=== PATIENT | female | born 1990 | race Caucasian/White ===

== ENCOUNTER 2018-07-31 16:02 | Emergency (ER) | payer MEDICAID ==
[~2018-07-31] VITALS: Ht 160 cm; Wt 44.7 kg
[2018-07-31] MEDS ORDERED: haloperidol lactate 5mg/ml inj IM ONE (17:10)
[2018-07-31] MEDS ORDERED: metoclopramide 5 mg/ml inj IV ONE (17:10)
[2018-07-31] MEDS ORDERED: normal saline 1000ML IV soln IV ONE (17:10)
[2018-07-31] MEDS ORDERED: LORazepam 2 mg/ml vial IV ONE (17:10)
[2018-07-31 17:29] LABS: BASOPHILS % (AUTO) 0.2 % (0-1); EOSINOPHILS % (AUTO) 0 % (0-6); HEMATOCRIT 39.8 % (35.0-45.0); HEMOGLOBIN 13.4 g/dl (12.0-16.0); LYMPHOCYTES # (AUTO) 1.4 X10'3 (1.1-4.8); LYMPHOCYTES % (AUTO) 16.7 % (21-51); MEAN CORPUSCULAR HEMOGLOBIN 32.3 PG (27.0-31.0); MEAN CORPUSCULAR HGB CONC 33.6 % (33.0-36.5); MEAN CORPUSCULAR VOLUME 96.2 FL (78-98); MEAN PLATELET VOLUME 8.2 FL (7.4-10.4); MONOCYTES # (AUTO) 0.8 X10'3 (0-0.9); NEUTROPHILS # (AUTO) 6.2 X10'3 (1.8-7.7); NEUTROPHILS % (AUTO) 74.1 % (42-75); PLATELET COUNT 313 X10'3 (140-440); RED BLOOD COUNT 4.14 X10'6 (4.20-5.60); RED CELL DISTRIBUTION WIDTH 12.9 % (11.5-14.5); WHITE BLOOD COUNT 8.3 X10'3 (4.5-11.0)
[2018-07-31 17:36] LABS: ALANINE AMINOTRANSFERASE 19 U/L (12-78); ALBUMIN 4.7 G/DL (3.4-5.0); ALBUMIN/GLOBULIN RATIO 1.2 (1.1-1.5); ALKALINE PHOSPHATASE 85 IU/L (46-116); ANION GAP 7 (8-16); ASPARTATE AMINO TRANSFERASE 14 U/L (10-37); BILIRUBIN,TOTAL 0.8 MG/DL (0.1-1.0); BLOOD UREA NITROGEN 13 MG/DL (7-18); BUN/CREATININE RATIO 18.3 (6.6-38.0); CALCIUM 9.8 MG/DL (8.5-10.1); CHLORIDE 90 MMOL/L (99-107); CREATININE 0.71 MG/DL (0.40-0.90); GLUCOSE 102 MG/DL (70-104); POTASSIUM 3.4 MMOL/L (3.5-5.1); SODIUM 131 MMOL/L (135-145); TOTAL CARBON DIOXIDE 33.6 MMOL/L (24-32); TOTAL PROTEIN 8.7 G/DL (6.4-8.2); eGFR > 90 ML/MIN
[2018-07-31 17:44] LABS: PROTHROMBIN TIME 10.6 SECONDS (9.0-12.0)
[2018-07-31] MEDS ORDERED: ONDA4TAB9 SL (17:50)
[2018-07-31] MEDS ORDERED: potassium Cl oral solution 20 MEQ/15 ML PO ONE (17:50)
[2018-07-31] MEDS ORDERED: PROC25SU31 RC (17:50)
[2018-07-31 18:59] LABS: CLARITY,URINE SLIGHTLY CLOUDY (Clear); COLOR,URINE STRAW (Yellow); GLUCOSE, URINE NEGATIVE (Neg); KETONES,URINE 15 mg/dl (Neg); LEUKOCYTE ESTERASE ,URINE NEGATIVE (Neg); NITRITES, URINE NEGATIVE (Neg); OCCULT BLOOD,URINE NEGATIVE (Neg); PROTEIN,URINE NEGATIVE (Neg); UROBILINOGEN,URINE 0.2 E.U/dL (0.2-1.0)
[2018-07-31 19:00] LABS: UA COLLECTION TYPE NON-SPECIFIED; URINE HCG NEGATIVE (NEG)
[2018-07-31 19:18] LABS: WBC,URINE 0-4 /HPF (0-4)
[2018-07-31 19:19] LABS: BACTERIA,URINE FEW /HPF (Neg); RBC,URINE NONE SEEN /HPF (0-2); SQUAMOUS EPITHELIAL CELL,UR MANY /LPF (FEW)
[2018-07-31 19:22] VITALS: BP 110/58
== END 2018-07-31 19:26 | disposition home or self-care (01) ==
LOC: EDSEX 16:03 → ER 16:03
DX: G43.A0 Cyclical vomiting, in migraine, not intractable (principal); E86.0 Dehydration; F12.929 Cannabis use, unspecified with intoxication, unspecified; E87.8 Other disorders of electrolyte and fluid balance, not elsewhere classified; R00.0 Tachycardia, unspecified; R10.13 Epigastric pain
CPT/HCPCS: 36415; 80053; 81001; 81025; 85025; 85610; 96361; 96372; 96374; 96375; 99284; J1630; J2060; J2765

== ENCOUNTER 2020-02-25 00:36 | Emergency (ER) | payer MEDICAID ==
[~2020-02-25] VITALS: Ht 160 cm; Wt 45.1 kg
[2020-02-25] MEDS ORDERED: aspirin 81mg tab.chew PO ONE (01:10)
[2020-02-25 01:43] LABS: D-DIMER < 0.19 MG/L FEU (0-0.50)
[2020-02-25 01:52] LABS: CLARITY,URINE SLIGHTLY CLOUDY (Clear); COLOR,URINE YELLOW (Yellow); GLUCOSE, URINE NEGATIVE (Neg); KETONES,URINE TRACE mg/dl (Neg); LEUKOCYTE ESTERASE ,URINE NEGATIVE (Neg); NITRITES, URINE NEGATIVE (Neg); OCCULT BLOOD,URINE NEGATIVE (Neg); PH,URINE 5.5 (4.8-8.0); PROTEIN,URINE 30 mg/dl (Neg); UROBILINOGEN,URINE 0.2 E.U/dL (0.2-1.0)
[2020-02-25] MEDS ORDERED: NAPR-56 PO (01:54)
[2020-02-25] MEDS ORDERED: naproxen 500mg tablet PO ONE (01:55)
[2020-02-25 01:57] LABS: UA COLLECTION TYPE CLN CATCH MIDSTREAM
[2020-02-25 02:02] LABS: BACTERIA,URINE FEW /HPF (Neg); RBC,URINE 0-2 /HPF (0-2); SQUAMOUS EPITHELIAL CELL,UR MANY /LPF (FEW); WBC,URINE 0-4 /HPF (0-4)
[2020-02-25 02:05] VITALS: BP 111/63
[2020-02-25 02:05] LABS: URINE AMPHETAMINE SCREEN NEGATIVE (Neg); URINE BARBITUATE SCREEN NEGATIVE (Neg); URINE BENZODIAZEPINES SCREEN NEGATIVE (Neg); URINE CANNABINOID SCREEN POSITIVE (Neg); URINE COCAINE SCREEN NEGATIVE (Neg); URINE METHADONE SCREEN NEGATIVE (Neg); URINE OPIATE SCREEN NEGATIVE (Neg); URINE PHENCYCLIDINE SCREEN NEGATIVE (Neg)
== END 2020-02-25 02:07 | disposition home or self-care (01) ==
LOC: ER 00:36
DX: M54.31 Sciatica, right side (principal); F12.90 Cannabis use, unspecified, uncomplicated; Z79.899 Other long term (current) drug therapy
CPT/HCPCS: 36415; 80305; 81001; 85379; 99283

== ENCOUNTER 2020-02-29 17:32 | Emergency (ER) | payer MEDICAID ==
[~2020-02-29] VITALS: Ht 160 cm; Wt 45.5 kg
[~2020-02-29 17:32] MED LIST: NAPR-56 PO
[2020-02-29 18:28] LABS: BASOPHILS % (AUTO) 0.2 % (0-1); EOSINOPHILS % (AUTO) 0 % (0-6); LYMPHOCYTES % (AUTO) 23.4 % (21-51); MEAN CORPUSCULAR HGB CONC 35.3 g/dL (33.0-36.5); MEAN CORPUSCULAR VOLUME 92.7 FL (78-98); MONOCYTES # (AUTO) 0.7 X10'3 (0-0.9); NEUTROPHILS # (AUTO) 5.3 X10'3 (1.8-7.7); RED BLOOD COUNT 4.38 X10'6 (4.20-5.60); WHITE BLOOD COUNT 7.9 X10'3 (4.5-11.0)
[2020-02-29 18:30] LABS: HEMATOCRIT 40.6 % (35.0-45.0); HEMOGLOBIN 14.4 g/dl (12.0-16.0); LYMPHOCYTES # (AUTO) 1.9 X10'3 (1.1-4.8); MEAN CORPUSCULAR HEMOGLOBIN 32.8 PG (27.0-31.0); MEAN PLATELET VOLUME 8.7 FL (7.4-10.4); MONOCYTES % (AUTO) 9.4 % (2-12); PLATELET COUNT 239 X10'3 (140-440); RED CELL DISTRIBUTION WIDTH 12.6 % (11.5-14.5)
[2020-02-29 18:47] LABS: ALANINE AMINOTRANSFERASE 16 U/L (12-78); ALBUMIN 4.9 G/DL (3.4-5.0); ALBUMIN/GLOBULIN RATIO 1.2 (1.1-1.5); ALKALINE PHOSPHATASE 68 IU/L (46-116); ANION GAP 14 (8-16); ASPARTATE AMINO TRANSFERASE 17 U/L (10-37); BILIRUBIN,TOTAL 1.2 MG/DL (0.1-1.0); BLOOD UREA NITROGEN 17 MG/DL (7-18); BUN/CREATININE RATIO 18.5 (6.6-38.0); CALCIUM 10.1 MG/DL (8.5-10.1); CHLORIDE 87 MMOL/L (99-107); CREATININE 0.92 MG/DL (0.40-0.90); GLUCOSE 93 MG/DL (70-104); LIPASE 98 U/L (73-393); POTASSIUM 3.1 MMOL/L (3.5-5.1); SODIUM 129 MMOL/L (135-145); TOTAL CARBON DIOXIDE 28.3 MMOL/L (24-32); TOTAL PROTEIN 8.9 G/DL (6.4-8.2); eGFR 73 ML/MIN
[2020-02-29 19:05] LABS: COLOR,URINE YELLOW (Yellow); GLUCOSE, URINE NEGATIVE (Neg); KETONES,URINE >=80 mg/dl (Neg); LEUKOCYTE ESTERASE ,URINE NEGATIVE (Neg); NITRITES, URINE NEGATIVE (Neg); OCCULT BLOOD,URINE LARGE (Neg); PROTEIN,URINE 30 mg/dl (Neg)
[2020-02-29 19:07] LABS: URINE HCG NEGATIVE (NEG)
[2020-02-29 19:10] LABS: CLARITY,URINE SLIGHTLY CLOUDY (Clear); UA COLLECTION TYPE CLN CATCH MIDSTREAM
[2020-02-29 19:11] LABS: BACTERIA,URINE FEW /HPF (Neg); RBC,URINE 0-2 /HPF (0-2); SQUAMOUS EPITHELIAL CELL,UR FEW /LPF (FEW); WBC,URINE 0-4 /HPF (0-4)
[2020-02-29] MEDS ORDERED: normal saline 1000ml 1,000 ML IV ONE ×2 (19:15)
[2020-02-29] MEDS ORDERED: proCHLORperazine 10 MG/2 ml inj IV ONE (19:30)
[2020-02-29] MEDS ORDERED: morphine 4 MG/ML inj SYRINge IV ONE (19:30)
[2020-02-29] MEDS ORDERED: ondansetron/PF 4mg/2ml inj IV ONE (19:30)
[2020-02-29] MEDS ORDERED: diphenhydrAMINE 50 mg/ml inj IV ONE (19:30)
[2020-02-29] MEDS ORDERED: potassium Cl 20 mEq SR tablet PO ONE (20:15)
[2020-02-29] MEDS ORDERED: ONDA4TAB6 PO (20:57)
[2020-02-29 21:35] LABS: ALBUMIN 3.5 G/DL (3.4-5.0); ANION GAP 8 (8-16); BLOOD UREA NITROGEN 13 MG/DL (7-18); BUN/CREATININE RATIO 16.9 (6.6-38.0); CALCIUM 7.6 MG/DL (8.5-10.1); CHLORIDE 99 MMOL/L (99-107); CREATININE 0.77 MG/DL (0.40-0.90); GLUCOSE 78 MG/DL (70-104); SODIUM 133 MMOL/L (135-145); TOTAL CARBON DIOXIDE 25.9 MMOL/L (24-32); eGFR 90 ML/MIN
[2020-02-29 21:42] LABS: POTASSIUM 2.5 MMOL/L (3.5-5.1)
[2020-02-29] MEDS ORDERED: LORazepam 1 MG tablet PO ONE (22:05)
[2020-02-29 22:48] LABS: ALBUMIN 3.7 G/DL (3.4-5.0); ANION GAP 9 (8-16); BLOOD UREA NITROGEN 13 MG/DL (7-18); BUN/CREATININE RATIO 15.9 (6.6-38.0); CALCIUM 7.5 MG/DL (8.5-10.1); CHLORIDE 98 MMOL/L (99-107); CREATININE 0.82 MG/DL (0.40-0.90); GLUCOSE 84 MG/DL (70-104); MAGNESIUM 2.1 MG/DL (1.5-2.4); SODIUM 135 MMOL/L (135-145); eGFR 84 ML/MIN
[2020-02-29] MEDS ORDERED: NO HOME MEDS (23:20)
[2020-02-29 23:30] VITALS: BP 96/69
== END 2020-02-29 23:32 | disposition home or self-care (01) ==
LOC: ER 17:33
DX: R11.15 Cyclical vomiting syndrome unrelated to migraine (principal); E87.6 Hypokalemia; R11.10 Vomiting, unspecified; K59.00 Constipation, unspecified; F12.90 Cannabis use, unspecified, uncomplicated
CPT/HCPCS: 36415; 80048; 80053; 81001; 81025; 83690; 83735; 85025; 96361; 96374; 96375; 99285; J0780; J1200; J2270; J2405; J7030; 96372